=== PATIENT | male | born 1965 | race Caucasian/White ===

== ENCOUNTER 2022-09-19 16:17 | Emergency (ER) | payer SELFPAY ==
[~2022-09-19] VITALS: Ht 182.9 cm; Wt 106.6 kg
--- NOTE | 2022-09-19 16:40 | NUR ---
BIB [facility] with c/o nausea and abd pain/cramps. Pt states he drank a canned drink that he got at a marijuana dispensary prior to the onset of s/s.
[2022-09-19] MEDS ORDERED: IV NORMAL SALINE 500 ML BAG IV ONE (17:00)
[2022-09-19] MEDS ORDERED: ONDANSETRON 4 MG/2 ML VIAL IV ONE (17:00)
[2022-09-19 17:08] LABS: MEAN CORPUSCULAR HEMOGLOBIN 30.2 uug (23.8-33.4); MEAN CORPUSCULAR VOLUME 91.1 fL (73.0-96.2); PLATELET COUNT (AUTO) 205 K/uL (152-348)
[2022-09-19 17:17] LABS: CREATININE 1.4 mg/dL (0.6-1.3); POTASSIUM 3.4 mmol/L (3.5-5.1)
[2022-09-19 17:23] LABS: BILIRUBIN,TOTAL 0.2 mg/dL (0.2-1.0); TOTAL PROTEIN, SERUM 8.1 g/dL (6.4-8.2)
[2022-09-19] MEDS ORDERED: ONDANSETRON 4 MG/2 ML VIAL ONE (17:52)
--- NOTE | 2022-09-19 19:33 | NUR ---
Patient discharged to home in stable condition. Written and verbal after care instructions given. Patient verbalizes understanding of instructions. Stressed follow up or return to ER for worsening s/s. Patient walked out with steady gait.
[2022-09-19 19:56] VITALS: BP 135/78
== END 2022-09-19 19:34 | disposition home or self-care (01) ==
LOC: ER 16:17
DX: F12.929 Cannabis use, unspecified with intoxication, unspecified (principal)
CPT/HCPCS: 99284; 96374; 96361; 80053; 83690; 85025; 36415; J2405; J7040; A4663